=== PATIENT | male | born 1940 | race Caucasian/White ===

== ENCOUNTER 2018-11-12 16:40 | Emergency (ER) | payer OTHER, MEDICARE | END 2018-11-12 18:02 | disposition home or self-care (01) | LOC: NAV ERS 16:40 | DX: J10.1 Influenza due to other identified influenza virus with other respiratory manifestations (principal); E03.9 Hypothyroidism, unspecified; F32.9 Major depressive disorder, single episode, unspecified; Z79.899 Other long term (current) drug therapy; Z79.82 Long term (current) use of aspirin | CPT/HCPCS: 99283 ==